=== PATIENT | female | born 1940 | race Caucasian/White ===

== ENCOUNTER 2023-04-27 10:45 | Outpatient (CLI) | payer MEDICARE ==
--- NOTE | 2023-04-27 16:14 | Ultrasound Report ---
LIMITED ULTRASOUND OF LEFT BREAST AND AXILLA: 04/27/2023 CLINICAL: Palpable left breast lump. Comparison is made to exam dated: 04/27/2023 mammogram - [facility]. Color flow and real-time ultrasound of the left breast 3-4 o'clock, and axilla regions were performed . Velasquez scale images of the real-time examination were reviewed. There is a 2.8 cm round mass with a spiculated margin in the left breast at 4 o'clock posterior depth 9 cm from the nipple. In the left axilla there is a 1.7 x 2.4 cm lymph node with a thickened cortex measuring 6 mm. IMPRESSION: HIGHLY SUGGESTIVE OF MALIGNANCY The 2.8 cm round mass in the left breast is highly suggestive of malignancy. Recommend ultrasound-gu ided biopsy. Left axillary adenopathy with a thickened cortex measuring 6 mm. Consider ultrasound-guided biopsy. Findings and recommendations were discussed with the patient by Dr. Gore. This exam was interpreted at Station ID: [id number]. Electronically Signed By: Gerardo Chambers M.D. acr/:04/27/2023 15:53:47 Ultrasound BI-RADS: 5 Highly suggestive of malignancy BI-RADS CATEGORY: (5) - 5 Biopsy follow-up [id number] Immediate follow-up LATERALITY: (B)
--- NOTE | 2023-04-27 16:14 | Mammography Report ---
BILATERAL DIGITAL DIAGNOSTIC MAMMOGRAM 3D/2D: 04/27/2023 CLINICAL: Baseline exam. Palpable left breast lump with skin changes. No prior exams were available for comparison. Both breasts are almost entirely fatty (category a/<25% glandular tissue). There is a 2 cm mass with a spiculated margin in the left breast at 4 o'clock posterior depth 10 cm f rom the nipple. No other significant masses, calcifications, or other findings are seen in either breast. IMPRESSION: INCOMPLETE: NEEDS ADDITIONAL IMAGING EVALUATION The 2 cm mass in the left breast is consistent with a solid mass and is indeterminate. An ultrasound is recommended. Based on the Tyrer Cuzick model (a risk assessment model) the patients lifetime risk is 2.5% and her 10 year risk is 0.0%. According to the ACR, ACS, and NCCN guidelines, an annual breast MRI exam adolph g with mammogram is recommended if the patients lifetime risk is 20% or greater. This exam was interpreted at Station ID: [id number]. NOTE: For mammograms, a report in lay terms will be sent to the patient. Approximately 15% of breast malignancies will not be visualized mammographically. In the management of a palpable breast mass, a negative mammogram must not discourage biopsy of a clinically suspicious lesion. Electronically Signed By: Gerardo Chambers M.D. acr/:04/27/2023 11:54:17 ACR BI-RADS Category 0: Incomplete 3340F PARENCHYMAL PATTERN: (F) - The breast(s) demonstrate(s) diffuse fatty replacement. BI-RADS CATEGORY: (0) - 0 Ultrasound [id number] Immediate follow-up LATERALITY: (L)
== END 2023-04-27 10:46 | disposition home or self-care (01) ==
LOC: DI 10:45
PROVIDERS: ATTEND Physician Assistant Medical
DX: N63.23 Unspecified lump in the left breast, lower outer quadrant (principal)

== ENCOUNTER 2023-05-17 09:21 | Outpatient (CLI) | payer MEDICARE ==
[~2023-05-17 09:21] MED LIST: LIDOCAINE 1%-EPI 1:100000 50 ML VIAL ONE; LIDOCAINE-MPF 1% 5 ML VIAL ONE
[2023-05-17] MEDS ORDERED: LIDOCAINE 1%-EPI 1:100000 50 ML VIAL ONE (09:55)
[2023-05-17] MEDS ORDERED: LIDOCAINE-MPF 1% 5 ML VIAL ONE (09:55)
[2023-05-17] MEDS ORDERED: LIDOCAINE-MPF 1% 5 ML VIAL TD ONE (13:57)
[2023-05-17] MEDS ORDERED: LIDOCAINE 1%-EPI 1:100000 50 ML VIAL SUBQ SCH (14:00)
[2023-05-17] MEDS ORDERED: LIDOCAINE 1%-EPI 1:100000 50 ML VIAL SUBQ ONE (14:00)
--- NOTE | 2023-05-18 12:20 | Mammography Report ---
UNILATERAL LEFT DIGITAL DIAGNOSTIC MAMMOGRAM WITH LATEROMEDIAL POST-PROCEDURE IMAGING FOR MARKER PLAC EMENT: 05/17/2023 CLINICAL: Post left breast ultrasound biopsy clip placement imaging. Comparison is made to exams dated: 04/27/2023 ultrasound and 04/27/2023 mammogram - [facility]. The left breast is heterogeneously dense, which may obscure small masses (category c / 51-75% glandul ar tissue). There is a marker clip in the appropriate position in the left breast at 4 o'clock posterior depth at the biopsy site. IMPRESSION: POST PROCEDURE MAMMOGRAM FOR MARKER PLACEMENT There was a successful marker clip placement in the left breast posterior depth. This exam was interpreted at Station ID: [id number]. Electronically Signed By: Enrique Hobson M.D. slc/:05/18/2023 11:37:22 ACR BI-RADS Category Post-procedure mammogram for marker placement PARENCHYMAL PATTERN: (D) - The breast(s) demonstrate(s) heterogeneously dense fibroglandular carmita collado. BI-RADS CATEGORY: () - Unspecified - other recall n/a LATERALITY: (B)
--- NOTE | 2023-05-18 12:20 | Ultrasound Report ---
ULTRASOUND OF LEFT AXILLA: 05/17/2023 CLINICAL: Reassess Axillary Lymph node for possible core BX. Comparison is made to exams dated: 04/27/2023 ultrasound, 04/27/2023 mammogram, 05/17/2023 ultrasound biopsy, and 05/17/2023 mammogram - [facility]. Color flow and real-time ultrasound of the left axilla were performed. Velasquez scale images of the real -time examination were reviewed. Left axillary node measuring 0.6 cm short axis diameter. This oval mass is hypoechoic. Cortical thick ening is less prominent. There is a immediate adjacent blood vessel. IMPRESSION: SUSPICIOUS OF MALIGNANCY Small left axillary node. Cortical thickening is less conspicuous. This node remains suspicious. The node is immediately adjacent to a large blood vessel. US guided biopsy was not preformed do to large adjacent blood vessel decreasing safety. Consider further evaluation with breast MRI. [place] lymph node dissection may also be warranted. If malignancy is not found at the left axilla, recommend ultrasound in 6 months to demonstrate stabilit y. This exam was interpreted at Station ID: [id number]. Electronically Signed By: Enrique Hobson M.D. [facility] – [place], [place]/:05/18/2023 11:25:45 Entry: - 05/18/2023 11:25:45 Ultrasound BI-RADS: 4 Suspicious for malignancy BI-RADS CATEGORY: (4) - 4 Ultrasound [id number] 6 month follow-up LATERALITY: (B)
--- NOTE | 2023-05-25 09:55 | Ultrasound Report ---
ULTRASOUND GUIDED BIOPSY LEFT BREAST USING VACUUM DEVICE WITH MARKING DEVICE INSERTED AND POST DIGITA L MAMMOGRAPHIC IMAGIN05/17/2023 CLINICAL: Left breast mass. PATIENT CONSENT: Risks (minor bleeding, infection, vasovagal reaction and repeat procedure), benefits and alternatives were explained to the patient and written informed consent was obtained. Correlation is made to exams dated: 04/27/2023 mammogram, 04/27/2023 ultrasound, 05/17/2023 mammogram , and 05/17/2023 ultrasound - [facility]. An ultrasound guided biopsy using real-time ultrasound was performed for the palpable 2.1 cm x 1.7 cm x 1.4 cm spiculated mass located in the left breast at 4 o'clock posterior depth 9 cm from the nippl e. This was described on the previous mammography and ultrasound reports. The skin was prepped in t he usual manner. Local anesthetic was administered to the access site. A skin jet was made in the breast. The abnormality was approached from the lateral aspect. A biopsy needle was placed adjacent to the abnormality under ultrasound guidance. Once the needle was documented to be in the correct l ocation, four cores were obtained using the Mammotome biopsy system. A hydromark clip was inserted i nto the biopsy cavity. A skin adhesive and a sterile dressing were applied to the access site. Post procedure digital mammographic imaging demonstrates the location device at the targeted area. The s pecimens were sent to the laboratory for pathological analysis. IMPRESSION: ULTRASOUND GUIDED BIOPSY MALIGNANT Ultrasound guided biopsy of the 2.1 cm x 1.7 cm x 1.4 cm mass in the left breast at 4 o'clock posteri or depth 9 cm from the nipple was successful with no apparent post procedure complications. Pathology indicates malignant invasive ductal carcinoma. Pathology results are concordant with imagi findings. A surgical/oncologic consultation is recommended. This exam was interpreted at Station ID: [id number]. Enrique Flood M.D. [facility] – [place]/:05/25/2023 09:47:15 BI-RADS CATEGORY: () - Unspecified - other recall n/a LATERALITY: (B)
== END 2023-05-17 09:22 | disposition home or self-care (01) ==
LOC: DI 09:21
PROVIDERS: ATTEND Physician Assistant Medical
DX: R59.0 Localized enlarged lymph nodes (principal); C50.512 Malignant neoplasm of lower-outer quadrant of left female breast; Z17.0 Estrogen receptor positive status [ER+]
CPT/HCPCS: 19083; 76882; 77065; J3490

== ENCOUNTER 2023-06-21 08:07 | Day surgery (SDC) | payer MEDICARE, MEDICAID ==
[2023-06-21] MEDS ORDERED: ACETAMINOPHEN 500 MG TABLET PO ONE (08:13)
[2023-06-21] MEDS ORDERED: ceFAZolin 2 GM VIAL ONE (08:14)
[2023-06-21] MEDS ORDERED: NALOXONE 0.4 MG/ML VIAL IVP PRN (10:21)
[2023-06-21] MEDS ORDERED: MORPHINE 2 MG/ML CARPUJECT IVP PRN (10:21)
[2023-06-21] MEDS ORDERED: HYDROmorphone 0.5 MG/0.5 ML SYRINGE IVP PRN ×2 (10:21→13:07)
[2023-06-21] MEDS ORDERED: ATROPINE ABBOJECT 1 MG/10 ML SYRINGE IVP PRN (10:21)
[2023-06-21] MEDS ORDERED: ONDANSETRON 4 MG/2 ML VIAL IVP PRN ×2 (10:21→13:07)
[2023-06-21] MEDS ORDERED: METOCLOPRAMIDE 10 MG/2 ML VIAL IVP PRN (10:21)
[2023-06-21] MEDS ORDERED: fentaNYL 100 MCG/2 ML VIAL IVP PRN (10:21)
[2023-06-21] MEDS ORDERED: ePHEDrine 50 MG/ML VIAL IVP PRN (10:21)
--- NOTE | 2023-06-21 10:21 | ANESTHESIA ---
Pre-Anesthesia VS, & Labs - Diagnosis breast CA - Procedure lumpectomy with SN biopsy Vital Signs: Temp Pulse Resp BP Pulse Ox O2 Flow Rate 37 C 56 L 10 L 125/64 100 06/21/23 08:30 06/21/23 08:30 06/21/23 08:30 06/21/23 08:30 06/21/23 08:30 Height: 5 ft 7 in Weight (kg): 65 kg Body Mass Index: 22.4 BMI Classification: Normal - NPO >8 hours - Is Patient ?: No Home Medications and Allergies Home Medications: Ambulatory Orders Latanoprost 0.005% Ophth Drops [Xalatan Ophth Drops] 1 drops EACHEYE DAILY 06/10/23 Latanoprost 0.005% Ophth Drops [Xalatan Ophth Drops] 1 drops EACHEYE DAILY Allergies/Adverse Reactions: Allergies Allergy/AdvReac Type Severity Reaction Status Date / Time No Known Drug Allergies Allergy Verified 06/10/23 10:35 Anes History & Medical History - Anesthetic History Anesthesia Complications: reports: No previous complications Family history of Anesthesia Complications: Denies Family history of Malignant Hyperthermia: Denies - Medical History Cardiovascular: reports: Arrhythmia Pulmonary: reports: None Gastrointestinal: reports: Hepatitis Urinary: reports: None Musculoskeletal: reports: None Endocrine/Autoimmune: reports: None Skin: reports: None - Surgical History Gynecologic: reports: Other Orthopedic: reports: Hip replacement Exam General: Alert, Oriented x3, Cooperative Dental: WNL Mouth Openin Fingerbreadth Neck Mobility: Normal Mallampati classification: I Thyromental Distance: 4-6 cm Respiratory: Lungs clear Cardiovascular: Regular rate Plan Anesthesia Type: General Consent for Procedure(s) Verified and Reviewed: Yes Code Status: Attempt Resuscitation ASA classification: 3-Severe systemic disease Is this case an emergency?: No
[2023-06-21] MEDS ORDERED: BUPIVACAINE 0.5% PF 10 ML VIAL ONE (10:27)
[2023-06-21] MEDS ORDERED: LIDOCAINE 1%-EPI 1:100000 20 ML MDV ONE (10:27)
[2023-06-21] MEDS ORDERED: ONDANSETRON 4 MG/2 ML VIAL ONE (10:36)
[2023-06-21] MEDS ORDERED: MIDAZOLAM 2 MG/2 ML VIAL ONE (10:36)
[2023-06-21] MEDS ORDERED: PROPOFOL 200 MG/20 ML VIAL IVP ONE (10:36)
[2023-06-21] MEDS ORDERED: DEXAMETHASONE 4 MG/ML VIAL ONE (10:36)
[2023-06-21] MEDS ORDERED: LIDOCAINE-PF 2% 10 ML AMP SUBQ ONE (10:36)
[2023-06-21] MEDS ORDERED: fentaNYL 100 MCG/2 ML VIAL ONE ×2 (10:36→12:38)
[2023-06-21] MEDS ORDERED: LACTATED RINGERS 1,000 ML IV SCH (11:00)
[2023-06-21] MEDS ORDERED: METHYLENE BLUE 0.5% 50 MG/10 ML AMPULE ONE (11:19)
[2023-06-21] MEDS ORDERED: METHYLENE BLUE 0.5% 50 MG/10 ML AMPULE IV ONE (11:25)
[2023-06-21] MEDS ORDERED: LIDOCAINE 1%-EPI 1:100000 20 ML MDV SUBQ ONE ×2 (12:21)
[2023-06-21] MEDS ORDERED: BUPIVACAINE 0.5% PF 10 ML VIAL INFIL ONE ×2 (12:22)
[2023-06-21] MEDS ORDERED: LACTATED RINGERS 1,000 ML IV ONE (12:55)
[2023-06-21] MEDS ORDERED: oxyCODONE 5 MG TABLET PO PRN (13:07)
[2023-06-21] MEDS ORDERED: ACETAMINOPHEN 500 MG TABLET PO PRN (13:07)
[2023-06-21] MEDS ORDERED: IBUPROFEN 400 MG TABLET PO PRN (13:07)
--- NOTE | 2023-06-21 13:10 | OPERATIVE REPORT ---
Operative Report - General Procedure Date: 06/21/23 Planned Procedure: Left breast lumpectomy and left axillary sentinel lymph node biopsy Pre-Op Diagnosis: Invasive ductal carcinoma of the left breast Procedure Performed: Left breast lumpectomy and left axillary sentinel lymph node biopsy Post Op Diagnosis: Invasive ductal carcinoma of the left breast - Procedure Note Primary Surgeon: Dr. Amina Santiago Anesthesia Provider: Chapis Cantu CRNA Anesthesia Technique: General ET tube, Local Pathology: 1. Left breast lumpectomy, clip present 2. [place] lymph node #1, 104, blue, firm 3. [place] lymph node #2, 100, blue Estimated Blood Loss (mL): 20 Drain/Tube Type: Huang drain Indications: Patient had a palpable mass in the left breast in the lateral aspect of the inframammary crease. Imaging confirmed a mass and biopsy demonstrated invasive ductal carcinoma. She also had a concerning lymph node which was thought to be too close to a vessel to safely biopsy. Due to the concern regarding this lymph node, I elected to proceed with sentinel lymph node biopsy, though I would not normally do this in a patient her age. The patient was seen and evaluated in the clinic where we discussed the risks, benefits, and alternatives of lumpectomy with sentinel lymph node biopsy. Risks include but are not limited to bleeding, infection, damage to surrounding structures, positive margin requiring further excision, and the need for further surgeries or procedures. The patient voiced understanding, her questions were answered, and she wished to proceed. A consent was signed by the patient prior to surgery. Findings: 1. Left breast lumpectomy, clip present 2. Low uptake of radiotracer, blue dye used 3. [place] lymph node #1, 104, blue, firm 4. [place] lymph node #2, 100, blue Complications: none - Other Other Information/Narrative: The patient was taken to the operating room and placed in the supine position. Preop antibiotics were given. ERAS medications were given. The neoprobe device was used to assess for uptake of the radiotracer in the axilla prior to the beginning of the case, and minimal uptake was noted. Methylene blue dye was injected in the subdermal tissues in 4 quadrants around the breast prior to the procedure. Next, the patient was prepped and draped in the usual sterile fash ion. A preop surgical timeout was performed. Attention was turned to the patient's left breast. An elliptical incision was made which incorporated the dimpled skin overlying the mass and the mass. Skin flaps were raised superiorly and inferiorly to the incision. The dissection was carried circumferentially around the palpable mass with serrated scissors, taking care to stay within normal appearing and palpably normal breast tissue. The lumpectomy specimen was removed and oriented with suture on the back table, short superior, long lateral, skin anterior. The specimen was sent to mammography and the biopsy clip was confirmed to be within the specimen.The edges of the lumpectomy cavity were inspected and there were no palpable abnormalities. Hemostasis was confirmed. The lumpectomy cavity was irrigated with warm normal saline. Clips were placed in the superior, inferior, medial, lateral, and posterior margins of the lumpectomy cavity. A 7 Amharic ERIKA drain was placed in the lumpectomy cavity due to its size. This was sewn into place using a 3-0 nylon suture. The deep dermal tissues were closed with 3-0 Vicryl in an interrupted fashion. The skin was closed with 4-0 Monocryl in a running subcuticular fashion. Attention was then turned to the left axilla. An incision was made just inferior to the hairline at the area of greatest uptake using the neoprobe device. The incision was made using a 15 blade scalpel and carried down through the skin and subcutaneous tissues to the level of the axillary fascia. The fascia was incised. The sentinel lymph nodes were identified using the neoprobe and direct visualization of the blue dye. Clips were used proximally and distally to the nodes and the nodes were removed the first node had a maximal reading of 104 on the back table and was noted to be markedly enlarged. The second sentinel lymph node measured 100 on the back table. On further inspection, there were no additional lymph nodes that had at least 10% uptake, 10, and no additional abnormal palpable nodes. Hemostasis was confirmed in the axilla. The deep dermal tissues were closed with 3-0 Vicryl. A 4-0 Monocryl running stitch was placed in a subcuticular fashion. Skin glue was placed over both incisions. The patient tolerated the procedure well. There were no complications. Synoptic Breast SNB - [place] Node Biopsy Operation performed with curative intent: Yes Tracer(s) used to identify sentinel nodes in the upfront surgery (non- neoadjuvant) setting (select all that apply): Dye, Radioactive tracer Tracer(s) used to identify sentinel nodes in the neoadjuvant setting (select all that apply): Dye, Radioactive tracer All nodes (colored or non-colored) present at the end of a dye-filled lymphatic channel were removed: Yes All significantly radioactive nodes were removed: Yes All palpably suspicious nodes were removed: Yes Biopsy-proven positive nodes marked with clips prior to chemotherapy were identified and removed: N/A
[2023-06-21 13:49] VITALS: O2SAT 100
--- NOTE | 2023-06-21 14:48 | ANESTHESIA POST OP EVALUATION ---
Anesthesia Post Eval - Post Anesthesia Eval Vitals: Last Vital Signs Temp 36.8 C 06/21/23 14:08 Pulse 63 06/21/23 14:43 Resp 16 06/21/23 14:43 BP 135/52 H 06/21/23 14:43 Pulse Ox 100 06/21/23 14:43 O2 Flow Rate CV Function Including HR & BP: Stable Pain Control: Satisfactory Nausea & Vomiting: Negative Mental Status: Baseline Respiratory Status: Airway Patent Hydration Status: Satisfactory Anesthesia Complications: None
[2023-06-21 14:49] VITALS: BP 135/52
--- NOTE | 2023-06-23 13:00 | Mammography Report ---
SPECIMEN: 06/21/2023 CLINICAL: Left breast specimen. Correlation is made to exams dated: 05/17/2023 mammogram, 04/27/2023 mammogram, and 05/17/2023 ultraso und - [facility]. Left breast lumpectomy specimen contains the biopsy clip and spiculated mass. IMPRESSION: SPECIMEN Left breast lumpectomy specimen contains the biopsy clip. This exam was interpreted at Station ID: [id number]. Enrique Hobson M.D. slc/:06/22/2023 17:30:38 BI-RADS CATEGORY: () - Unspecified - other recall n/a LATERALITY: (B)
== END 2023-06-21 08:08 | disposition home or self-care (01) ==
LOC: DI 08:07
PROVIDERS: ATTEND Surgery
PROC: 0HBU0ZX Excision of Left Breast, Open Approach, Diagnostic (ICD-10-PCS; 2023-06-21)
PROC: 0HBU0ZZ Excision of Left Breast, Open Approach (ICD-10-PCS; principal; 2023-06-21 10:45)
DX: C50.912 Malignant neoplasm of unspecified site of left female breast (principal); C77.3 Secondary and unspecified malignant neoplasm of axilla and upper limb lymph nodes; Z17.0 Estrogen receptor positive status [ER+]
CPT/HCPCS: 19301; 38525; 38792; 76098; A9270; J7120

== ENCOUNTER 2023-07-19 12:51 | Day surgery (SDC) | payer MEDICARE, MEDICAID ==
[~2023-07-19 12:51] MED LIST changes: +ACETAMINOPHEN 500 MG TABLET PO ONE; -LIDOCAINE 1%-EPI 1:100000 50 ML VIAL ONE; -LIDOCAINE-MPF 1% 5 ML VIAL ONE; +ceFAZolin 2 GM VIAL ONE
[2023-07-19] MEDS: LACTATED RINGERS 1,000 ML IV ONE (13:00)
[2023-07-19] MEDS ORDERED: LIDOCAINE 1%-EPI 1:100000 20 ML MDV ONE (14:08)
[2023-07-19] MEDS ORDERED: BUPIVACAINE 0.5% PF 10 ML VIAL ONE (14:08)
--- NOTE | 2023-07-19 15:27 | ANESTHESIA ---
Pre-Anesthesia VS, & Labs - Diagnosis left breast invasive ductal carcinoma - Procedure left breast reexcision of positive margin Vital Signs: Temp Pulse Resp BP Pulse Ox O2 Flow Rate 36.4 C L 49 L 14 159/77 H 100 0 07/19/23 12:40 07/19/23 12:40 07/19/23 12:40 07/19/23 12:40 07/19/23 12:40 07/19/23 12:40 Height: 5 ft 7 in Weight (kg): 66.6 kg Body Mass Index: 23.0 BMI Classification: Normal - NPO >8 hours - Is Patient ?: No Home Medications and Allergies Home Medications: Ambulatory Orders Escitalopram [Lexapro] 10 mg PO DAILY 07/14/23 Magnesium Oxide [Mag Ox] 400 mg PO DAILY 07/19/23 Latanoprost 0.005% Ophth Drops [Xalatan Ophth Drops] 1 drops EACHEYE DAILY 06/10/23 Escitalopram [Lexapro] 10 mg PO DAILY 07/14/23 Magnesium Oxide [Mag Ox] 400 mg PO DAILY 07/19/23 Allergies/Adverse Reactions: Allergies Allergy/AdvReac Type Severity Reaction Status Date / Time No Known Drug Allergies Allergy Verified 06/10/23 10:35 Anes History & Medical History - Anesthetic History Anesthesia Complications: reports: No previous complications Family history of Anesthesia Complications: Denies Family history of Malignant Hyperthermia: Denies - Medical History Cardiovascular: reports: Arrhythmia Pulmonary: reports: None Gastrointestinal: reports: Hepatitis Urinary: reports: None Neuro: reports: None Musculoskeletal: reports: None Endocrine/Autoimmune: reports: None Skin: reports: None Smoking Status: Never smoker Psychosocial: reports: No issues indicated History of Cancer?: Yes (breast) - Surgical History Gynecologic: reports: Other Orthopedic: reports: Hip replacement Exam General: Alert, Oriented x3, Cooperative, No acute distress Dental: WNL Mouth Openin Fingerbreadth Neck Mobility: Normal Mallampati classification: II Thyromental Distance: 4-6 cm Mental/Cognitive Status: Alert/Oriented X3, Normal for patient Plan Anesthesia Type: General Consent for Procedure(s) Verified and Reviewed: Yes Code Status: Attempt Resuscitation ASA classification: 3-Severe systemic disease Is this case an emergency?: No
[2023-07-19] MEDS ORDERED: PROPOFOL 200 MG/20 ML VIAL IVP ONE (15:30)
[2023-07-19] MEDS ORDERED: fentaNYL 100 MCG/2 ML VIAL ONE (15:30)
[2023-07-19] MEDS ORDERED: SEVOFLURANE 250 ML LIQUID INH ONE (15:33)
[2023-07-19] MEDS ORDERED: NALOXONE 0.4 MG/ML VIAL IVP PRN (15:39)
[2023-07-19] MEDS ORDERED: fentaNYL 100 MCG/2 ML VIAL IVP PRN (15:39)
[2023-07-19] MEDS ORDERED: ONDANSETRON 4 MG/2 ML VIAL IVP PRN ×2 (15:39→16:38)
[2023-07-19] MEDS ORDERED: HYDROmorphone 0.5 MG/0.5 ML SYRINGE IVP PRN (15:39)
[2023-07-19] MEDS ORDERED: MORPHINE 2 MG/ML CARPUJECT IVP PRN (15:39)
[2023-07-19] MEDS ORDERED: ATROPINE ABBOJECT 1 MG/10 ML SYRINGE IVP PRN (15:39)
[2023-07-19] MEDS ORDERED: ONDANSETRON 4 MG/2 ML VIAL ONE (16:00)
[2023-07-19] MEDS ORDERED: LACTATED RINGERS 1,000 ML IV SCH (16:00)
[2023-07-19] MEDS ORDERED: DEXAMETHASONE 4 MG/ML VIAL ONE (16:00)
[2023-07-19] MEDS ORDERED: GLYCOPYRROLATE 1 MG/5 ML VIAL ONE (16:04)
[2023-07-19] MEDS: LIDOCAINE 1%-EPI 1:100000 20 ML MDV SUBQ ONE ×2 (16:19)
[2023-07-19] MEDS: BUPIVACAINE 0.5% PF 10 ML VIAL SUBQ ONE ×2 (16:19)
[2023-07-19] MEDS ORDERED: ACETAMINOPHEN 500 MG TABLET PO PRN (16:38)
[2023-07-19] MEDS: LACTATED RINGERS 400 ML IV ONE ×3 (16:38→17:46)
--- NOTE | 2023-07-19 16:42 | OPERATIVE REPORT ---
Operative Report - General Procedure Date: 07/19/23 Planned Procedure: re-excision of positive margin, left breast Pre-Op Diagnosis: invasive ductal carcinoma Procedure Performed: reexcision of positive margin Post Op Diagnosis: invasive ductal carcinoma - Procedure Note Primary Surgeon: Dr. Amina Santiago Anesthesia Provider: Mary Yung CRNA Anesthesia Technique: General LMA, Local Pathology: 1. inferior margin, re excsion, oriented short superior, long lateral, double anterior Estimated Blood Loss (mL): 10 Indications: Patient has invasive ductal carcinoma of the left breast. On previous lumpectomy, she had a positive inferior and close posterior margin. She was seen and evaluated in the clinic postoperatively. She is doing well. We discussed the risks, benefits, and alternatives of reexcision. The patient's daughter was on the telephone during our conversation. Risks of reexcision include bleeding, infection, damage to surrounding structures, numbness in the area, and a persistently positive margin. The patient voiced understanding, her questions were answered, and she wished to proceed. A consent was signed by the patient in clinic. Findings: 1. inferior margin re excised, oriented short superior, long lateral, double anterior 2. posterior margin is chest wall Complications: none - Other Other Information/Narrative: The patient was taken to the operating room and placed in the supine position. Preop antibiotics were given. ERAS medications were given. The patient was prepped and draped in the usual sterile fashion. A preop surgical timeout was performed. Attention was turned to the patient's left breast. The patient's previous incision was opened. She had a small amount of serous fluid consistent with a seroma in her lumpectomy cavity. The posterior margin of her prior excision is the chest wall, therefore this was not reexcised despite having a close margin. The inferior margin was reexcised and oriented on the back table, short superior, long lateral, double anterior. The edges of the lumpectomy cavity were inspected and there were no palpable abnormalities. Hemostasis was confirmed. The lumpectomy cavity was irrigated with warm normal saline. The deep dermal tissues were closed with 3-0 Vicryl in an interrupted fashion. The skin was closed with 4-0 Monocryl in a running subcuticular fashion. The patient tolerated the procedure well. There were no complications.
[2023-07-19] MEDS ORDERED: LABETALOL 20 MG/4 ML SYRINGE IVP ONE (17:07)
--- NOTE | 2023-07-19 17:08 | ANESTHESIA POST OP EVALUATION ---
Anesthesia Post Eval - Post Anesthesia Eval Vitals: Last Vital Signs Temp 36.0 C L 07/19/23 17:03 Pulse 62 07/19/23 17:03 Resp 16 07/19/23 17:03 BP 182/78 H 07/19/23 17:03 Pulse Ox 100 07/19/23 17:03 O2 Flow Rate 0 07/19/23 12:40 CV Function Including HR & BP: Additional Therapies Ordered Pain Control: Satisfactory Nausea & Vomiting: Negative Mental Status: Baseline Respiratory Status: Airway Patent Hydration Status: Satisfactory Anesthesia Complications: None
[2023-07-19] MEDS: LABETALOL 20 MG/4 ML SYRINGE IVP PRN (17:09)
[2023-07-19] MEDS: hydrALAZINE INJ 20 MG/ML VIAL IVP ONE (17:27)
[2023-07-19 19:45] VITALS: BP 136/64; O2SAT 98
== END 2023-07-19 19:35 | disposition home or self-care (01) ==
LOC: SDS 12:51 → MS3 16:22 → SDS 19:35
PROVIDERS: ATTEND Surgery
PROC: 0HBU0ZZ Excision of Left Breast, Open Approach (ICD-10-PCS; principal; 2023-07-19 14:15)
DX: C50.912 Malignant neoplasm of unspecified site of left female breast (principal); R41.89 Other symptoms and signs involving cognitive functions and awareness
CPT/HCPCS: 19301; 70450; A9270; J3490; J7120

== ENCOUNTER 2023-07-19 19:15 | Outpatient (CLI) | payer MEDICARE, MEDICAID ==
--- NOTE | 2023-07-20 13:43 | CT Report ---
PROCEDURE: Head WO INDICATIONS: COGNITIVE CHANGES TECHNIQUE: Noncontrast 4.5 mm thick angled axial sections acquired from the foramen magnum to the vertex. For r adiation dose reduction, the following was used: automated exposure control, adjustment of mA and/or kV according to patient size. COMPARISON: None. FINDINGS: Image quality: Excellent. CSF spaces: Basal cisterns are patent. No extra-axial fluid collections. Ventricles are normal in size and shape. Brain: No midline shift. No intracranial masses or hemorrhage. Velasquez-white matter interface is norm al. Skull and face: Calvarium and visualized facial bones are intact, without suspicious lesions. Sinuses: Visualized sinuses and mastoids are clear. IMPRESSION: No acute intracranial pathology. Normal noncontrast head CT for age. To the limits of this noncontrast study, no findings of masses or mass effect can be seen. Reviewed by: Clint Deleon MD on 07/20/2023 12:42 PM [facility] Approved by: Clint Deleon MD on 07/20/2023 12:42 PM [facility] Station ID: [id number]
== END 2023-07-19 19:16 | disposition home or self-care (01) ==
LOC: DI 19:15
PROVIDERS: ATTEND Physician Assistant Medical
DX: R41.89 Other symptoms and signs involving cognitive functions and awareness (principal); C50.912 Malignant neoplasm of unspecified site of left female breast

== ENCOUNTER 2023-09-28 10:27 | Outpatient (CLI) | payer MEDICARE, MEDICAID ==
[2023-09-28 14:47] LABS: BASOPHILS # (AUTO) 0.1 10^3/uL (0.0-0.1); BASOPHILS % (AUTO) 0.7 %; EOSINOPHILS # (AUTO) 0.2 10^3/uL (0.0-0.7); EOSINOPHILS % (AUTO) 2.8 %; HCT - HEMATOCRIT 41.6 % (37.0-47.0); HGB - HEMOGLOBIN 13.1 g/dL (12.0-16.0); LYMPHOCYTES # (AUTO) 1.2 10^3/uL (1.5-3.5); LYMPHOCYTES % (AUTO) 17.6 %; MEAN CORPUSCULAR HEMOGLOBIN 29.8 pg (27.0-31.0); MEAN CORPUSCULAR HGB CONC 31.5 g/dL (32.0-36.0); MEAN CORPUSCULAR VOLUME 94.8 fL (81.0-99.0); MEAN PLATELET VOLUME 11.1 fL (7.9-10.8); MONOCYTES # (AUTO) 0.5 10^3/uL (0.0-1.0); NEUTROPHILS # (AUTO) 4.8 10^3/uL (1.5-6.6); NEUTROPHILS % (AUTO) 70.8 %; PLT - PLATELET COUNT 302 10^3/uL (130-450); RED BLOOD COUNT 4.39 10^6/uL (4.20-5.40); RED CELL DISTRIBUTION WIDTH 13.2 % (12.0-15.0); WHITE BLOOD COUNT 6.7 x10^3/uL (4.8-10.8)
[2023-09-28 15:23] LABS: THYROID STIMULATING HORMONE 3.74 uIU/mL (0.34-5.60)
[2023-09-28 15:56] LABS: ALBUMIN 3.9 g/dL (3.2-5.5); ALBUMIN/GLOBULIN RATIO 1.4 (1.0-2.2); ALKALINE PHOSPHATASE 67 IU/L (42-121); ALT ALANINE AMINOTRANSFERASE 10 IU/L (10-60); AST ASPARTATE AMINOTRANSFERASE 18 IU/L (10-42); BILIRUBIN,TOTAL 0.6 mg/dL (0.2-1.0); BUN - BLOOD UREA NITROGEN 24 mg/dL (6-20); CALCIUM 9.5 mg/dL (8.5-10.3); CARBON DIOXIDE - CO2 29 mmol/L (21-32); CHLORIDE 106 mmol/L (101-111); CHOL/HDL RATIO 3.3 (<4.4); CHOLESTEROL 257 mg/dL; GFR - MDRD 53 (>89); GLUCOSE 92 mg/dL (74-104); HDL CHOLESTEROL 78 mg/dL; LDL CHOLESTEROL,CALCULATED 153 mg/dL; POTASSIUM 4.6 mmol/L (3.5-4.5); SODIUM 140 mmol/L (135-145); TOTAL PROTEIN 6.6 g/dL (6.4-8.9); TRIGLYCERIDES 129 mg/dL (48-352); VLDL CHOLESTEROL 26 mg/dL
[2023-09-28 19:56] LABS: ESTIMATED AVERAGE GLUCOSE 108 mg/dL (70-100); HEMOGLOBIN A1c% 5.4 % (4.27-6.07)
== END 2023-09-28 10:28 | disposition home or self-care (01) ==
LOC: LAB.S 10:27
PROVIDERS: ATTEND Physician Assistant Medical
DX: Z13.9 Encounter for screening, unspecified (principal); R41.89 Other symptoms and signs involving cognitive functions and awareness; R59.0 Localized enlarged lymph nodes; F41.8 Other specified anxiety disorders
CPT/HCPCS: 36415; 80053; 80061; 82607; 82746; 83036; 83721; 84443; 85025